=== PATIENT | female | born 1980 | race Caucasian/White ===

== ENCOUNTER → 2017-05-25 09:11 | Outpatient (CLI) | payer OTHER, SELFPAY ==
[2017-05-25 10:32] LABS: Hematocrit 34.1 % (37-47); Hemoglobin 11.7 g/dl (12.0-15.0); Mean Corp Hgb Conc 34.3 g/gl (32-36); Mean Corpuscular Hgb 29.8 pg (27.0-32.0); Mean Platelet Vol. 9.8 fl (6.2-12.0); Platelet Count 198 K/mm3 (150-450); RBC Distribution Width CV 12.9 % (11.6-14.6); RBC Distribution Width SD 39.8 fl (35.1-43.9); Red Blood Count 3.92 M/mm3 (4.2-5.4); White Blood Count 9.6 K/mm3 (4.4-11.0)
[2017-05-25 10:33] LABS: Scan Indicated on CBC? Y/N NO
[2017-05-25 10:35] LABS: Glucose Challenge Gest 1H 50g 84 mg/dL (70-140)
== END ==
PROVIDERS: Visit Provider Obstetrics & Gynecology
DX: Z34.83 Encounter for supervision of other normal pregnancy, third trimester (principal)
CPT/HCPCS: 36415; 82950; 85027; 86850

== ENCOUNTER → 2017-07-02 11:27 | Outpatient (CLI) | payer OTHER, SELFPAY ==
[2017-07-02 13:52] LABS: Hematocrit 32.8 % (37-47); Hemoglobin 11.4 g/dl (12.0-15.0); Mean Corp Hgb Conc 34.8 g/gl (32-36); Mean Corpuscular Hgb 29.6 pg (27.0-32.0); Mean Corpuscular Volume 85.2 fL (81-99); Mean Platelet Vol. 9.8 fl (6.2-12.0); Platelet Count 178 K/mm3 (150-450); RBC Distribution Width CV 12.9 % (11.6-14.6); RBC Distribution Width SD 39.3 fl (35.1-43.9); Red Blood Count 3.85 M/mm3 (4.2-5.4); White Blood Count 10.2 K/mm3 (4.4-11.0)
[2017-07-02 13:53] LABS: Scan Indicated on CBC? Y/N NO
[2017-07-02 14:04] LABS: AST(SGOT) 15 U/L (15-37); Alanine Aminotransfer ALT/SGPT 15 U/L (13-56); Albumin, Serum 2.9 g/dL (3.2-5.0); Alkaline Phosphatase 95 U/L (45-117); Bilirubin, Direct 0.06 mg/dL (0.00-0.30); Globulin 3.5 g/dL (2.2-4.2); Protein, Total 6.4 g/dL (6.4-8.2)
== END ==
PROVIDERS: Visit Provider Obstetrics & Gynecology
DX: R10.11 Right upper quadrant pain (principal)
CPT/HCPCS: 36415; 80076; 85027

== ENCOUNTER → 2017-07-21 13:49 | Outpatient (CLI) | payer OTHER, SELFPAY ==
[2017-07-21 17:57] LABS: Group B Strep DNA By PCR POSITIVE (Negative); Probe Check PASS
== END ==
PROVIDERS: Visit Provider Obstetrics & Gynecology
DX: Z36.85 Encounter for antenatal screening for Streptococcus B (principal)
CPT/HCPCS: 87653

== ENCOUNTER 2017-08-25 06:41 | Outpatient (CLI) | payer OTHER, SELFPAY ==
[2017-08-25 07:04] VITALS: BMI 29.4
--- NOTE | 2017-08-27 07:33 | OB.TRI.NOTE ---
History of Present Illness Date of Service: 08/25/17 Was patient seen by the physician?: Yes Reason For Visit: DECREASE MOVEMENT Date of Service: 08/25/17 Final RADHA: 08/17/17 Gestational age: 41 Weeks and 1 Days History of Present Illness: 37 yo female presents at 41 1/7 wk EGA by early sono with CC of dec FM. No interest in induction until absolutely necessary. Allergies No Known Allergies Allergy (Verified 08/25/17 07:09) NST - FHR Rate Baby A Baseline: 130-140 avg variability. Accels. Variability:: Moderate Accelerations:: 15 x 15 Decelerations:: None NST Reactive:: Yes, Appropriate for gestational age FHR Category:: Category I Uterine Activity:: irreg UCs. Impression/Plan 41 1/7 wk EGA . DECLINES INDUCTION NST reactive F/U in ofc as planned for PNV and NST Return to OB dept if inc s/sx of labor.
== END 2017-08-25 08:45 | disposition home or self-care (01) ==
LOC: WPOUT 06:57 → WP 06:58
PROVIDERS: Family Provider Family Medicine; PCP Family Medicine; Visit Provider Obstetrics & Gynecology
DX: O48.0 Post-term pregnancy (principal); Z3A.41 41 weeks gestation of pregnancy
CPT/HCPCS: 59025; 59050; 99218; G0378

== ENCOUNTER 2017-08-31 07:05 | Inpatient (IN) | payer OTHER, SELFPAY ==
[2017-08-31 07:26] VITALS: BMI 29.7
[2017-08-31] MEDS: Lactated Ringers 1,000 ML 50 ML IV (07:59)
[2017-08-31 08:24] LABS: Hematocrit 35.5 % (37-47); Hemoglobin 11.7 g/dl (12.0-15.0); Mean Corpuscular Hgb 27.5 pg (27.0-32.0); Mean Corpuscular Volume 83.5 fL (81-99); Mean Platelet Vol. 10.7 fl (6.2-12.0); Platelet Count 156 K/mm3 (150-450); RBC Distribution Width SD 42.3 fl (35.1-43.9); Red Blood Count 4.25 M/mm3 (4.2-5.4); White Blood Count 6.8 K/mm3 (4.4-11.0)
[2017-08-31 08:30] LABS: Scan Indicated on CBC? Y/N NO
[2017-08-31] MEDS: Oxytocin 30 units/NS 500 ml 30 UNITS/500 ML IV.SOLN IV (08:41)
--- NOTE | 2017-08-31 12:37 | PCM.PN.BLA ---
Progress Note 42 wk induction postdates Up walking and very active this am. Feeling very minimal cramping. Plans to go natural, no epidural AVSS Pitocin at 8 mIU/min EFM intermittent tracing, but all category I when traced. 120-130s mod variability. Accels. Irreg UC and poor pickle solution maker. approx q 4-5 min at times CX; 4/75/-1 midposition. Mod consistency. AROM clear fluid Scalp lead placed. A/P: 42 wk induction of labor postdates . continue induction. Watch progress, descent. Anticipate . LGA and h/o 10# last delivery.
[2017-08-31] MEDS: Oxytocin 30 units/NS 500 ml 30 UNITS/500 ML IV.SOLN 334 UNITS IV (13:45)
[2017-08-31] MEDS: Oxytocin 30 units/NS 500 ml 30 UNITS/500 ML IV.SOLN 167 UNITS IV (14:15)
[2017-08-31] MEDS: 0.9% Saline Lock 10 ML Syringe IV (14:45)
--- NOTE | 2017-08-31 19:49 | PCM.OB.VAG ---
Vaginal Delivery Maternal Presentation: Medically Indicated Induction 42 wk induction postdates Method of Induction: Pitocin, Amniotomy Medical Reason for Induction: Post term Amniotic Membrane Rupture Type: Artificial Amniotic Fluid Description: Clear Final RADHA: 08/17/17 Gestational age: 42 Weeks and 0 Days Date of Procedure: 08/31/17 Pre-Operative Diagnosis: 42 wk induction Post-Operative Diagnosis: Same Surgery/ Procedure Performed: Spontaneous Vaginal Delivery Type of Anesthesia: None Description of Procedure: of a gomez viable male over intact perineum to 2nd degree perineal laceration. Head delivered FATUMA. Loose body cord, nuchal cord noted. Shoulder delivered easily with gentle lateral traction and maternal expulsive effort, and rotation of anterior shoulder. OP and nares bulb suctioned at delivery. to maternal abdomen for drying , stimulation. Cord clamped times two and cut. Routine cord gases and cord blood for typing collected. Ecchymosis noted around face (rapid descent). Ap 8/9 Placenta delivered by spontaneous expulsion, and expression. 3 v cord noted. Placenta intact with trailing membranes. PP exam: perineal laceration noted. 2nd degree. Pt declined lidocaine local d/t possible adverse systemic reaction prior. Skin infiltrated with 15 cc of lactated ringers. 3-0 Vicryl interrupted suture used to reapproximate muscles and then skin later. Minimal suturing done d/t lack of local anesthesia. Pt tolerated procedure well. No other lacerations noted. EBL 300 cc Pt and infant tolerated delivery well. To recovery, stable condition. Ray allen sponge counts correct x two. Presentation: Vertex, FATUMA Placental Delivery Description: Spontaneous Placenta Disposition: [facility] Cord Vessel Description: 3 Vessels Nuchal Cord Compression: Without compression Cord Gases drawn per routine: ABG, VBG Cord Entanglement: Around neck x 1, loose Estimated Blood Loss: 300 Infant A gender: Male (1 minute): 8 (5 minute): 9 Episiotomy Description: None Laceration: Midline, Perineal Extension/lac, 2nd degree Medications given after delivery: IV Pitocin Complications: None
--- NOTE | 2017-08-31 19:57 | OP.PCM_ITS ---
Vaginal Delivery Maternal Presentation: Medically Indicated Induction 42 wk induction postdates Method of Induction: Pitocin, Amniotomy Medical Reason for Induction: Post term Amniotic Membrane Rupture Type: Artificial Amniotic Fluid Description: Clear Final RADHA: 08/17/17 Gestational age: 42 Weeks and 0 Days Date of Procedure: 08/31/17 Pre-Operative Diagnosis: 42 wk induction Post-Operative Diagnosis: Same Surgery/ Procedure Performed: Spontaneous Vaginal Delivery Type of Anesthesia: None Description of Procedure: of a gomez viable male over intact perineum to 2nd degree perineal laceration. Head delivered FATUMA. Loose body cord, nuchal cord noted. Shoulder delivered easily with gentle lateral traction and maternal expulsive effort, and rotation of anterior shoulder. OP and nares bulb suctioned at delivery. to maternal abdomen for drying , stimulation. Cord clamped times two and cut. Routine cord gases and cord blood for typing collected. Ecchymosis noted around face (rapid descent). Ap 8/9 Placenta delivered by spontaneous expulsion, and expression. 3 v cord noted. Placenta intact with trailing membranes. PP exam: perineal laceration noted. 2nd degree. Pt declined lidocaine local d/ t possible adverse systemic reaction prior. Skin infiltrated with 15 cc of lactated ringers. 3-0 Vicryl interrupted suture used to reapproximate muscles and then skin later. Minimal suturing done d/t lack of local anesthesia. Pt tolerated procedure well. No other lacerations noted. EBL 300 cc Pt and infant tolerated delivery well. To recovery, stable condition. Ray allen sponge counts correct x two. Presentation: Vertex, FATUMA Placental Delivery Description: Spontaneous Placenta Disposition: [facility] Cord Vessel Description: 3 Vessels Nuchal Cord Compression: Without compression Cord Gases drawn per routine: ABG, VBG Cord Entanglement: Around neck x 1, loose Estimated Blood Loss: 300 A gender: Male (1 minute): 8 (5 minute): 9 Episiotomy Description: None Laceration: Midline, Perineal Extension/lac, 2nd degree Medications given after delivery: IV Pitocin Complications: None
--- NOTE | 2017-08-31 19:57 | PCM.DCVAG ---
Discharge Diet: No Restrictions Discharge Activity: May Shower, May Take a Tub Bath May resume sexual activity in: 4-6 weeks Additional Activity Instructions:: Nothing in the vagina for 4-6 weeks. You may return to work/school in 6 weeks. Additional Instructions: If you experience any of the following, contact your healthcare provider. Bleeding that soaks a pad every hour for 2 hours Fever 100.4 or higher Unrelieved abdominal pain Problems urinating (including inability to urinate or burning while urinating). Visual changes Severe headache Flu-like symptoms Pain or redness in one of both of your breasts Pain, warmth, tenderness or swelling in your legs, especially the calf area Frequent nausea and vomiting Symptoms of depression or anxiety If you experience any of the following, call 911 or go to the nearest Emergency Room. Chest pain Problems breathing Seizure activity Partial or complete paralysis of a body part, slurred speech, weakness or drooping of the face, or a sudden inability to walk or hold your balance Allergies/Adverse Reactions: Allergies No Known Allergies Allergy (Verified 08/31/17 07:26) Medications to take at Discharge Vits [Prenatabs FA] 1 tablet PO DAILY 08/14/14 Please Follow Up With: Mirian Deshpande MD - [phone] When: Call to make an appointment with your doctor in 6 weeks. Primary Care Physician: Bruce Bolton MD [Primary Care Provider] - Test Results: Test results from this visit will be discussed in further detail at your follow-up appointment, if applicable. Proposed Discharge Date: 09/02/17
--- NOTE | 2017-08-31 19:59 | DCINST_ITS ---
Discharge Diet: No Restrictions Discharge Activity: May Shower, May Take a Tub Bath May resume sexual activity in: 4-6 weeks Additional Activity Instructions:: Nothing in the vagina for 4-6 weeks. You may return to work/school in 6 weeks. Additional Instructions: If you experience any of the following, contact your healthcare provider. * Bleeding that soaks a pad every hour for 2 hours * Fever 100.4 or higher * Unrelieved abdominal pain * Problems urinating (including inability to urinate or burning while urinating) . * Visual changes * Severe headache * Flu-like symptoms * Pain or redness in one of both of your breasts * Pain, warmth, tenderness or swelling in your legs, especially the calf area * Frequent nausea and vomiting * Symptoms of depression or anxiety If you experience any of the following, call 911 or go to the nearest Emergency Room. * Chest pain * Problems breathing * Seizure activity * Partial or complete paralysis of a body part, slurred speech, weakness or drooping of the face, or a sudden inability to walk or hold your balance Allergies/Adverse Reactions: Allergies No Known Allergies Allergy (Verified 08/31/17 07:26) Medications to take at Discharge Vits [Prenatabs FA] 1 tablet PO DAILY 08/14/14 Please Follow Up With: Mirian Deshpande MD - [phone] When: Call to make an appointment with your doctor in 6 weeks. Primary Care Physician: Bruce Bolton MD [Primary Care Provider] - Test Results: Test results from this visit will be discussed in further detail at your follow- up appointment, if applicable. Proposed Discharge Date: 09/02/17
[2017-08-31 20:06] VITALS: BP 110/72; PULSE 85; RESP 16; TEMP 36.3; O2SAT 98
[2017-08-31 23:50] VITALS: BP 110/65; PULSE 96; RESP 18; TEMP 36.7; O2SAT 99
[2017-09-01 04:40] VITALS: BP 107/70; PULSE 64; RESP 18; TEMP 36.6; O2SAT 96
[2017-09-01] MEDS: Ibuprofen 600 MG Tablet PO ×3 (08:12→21:23)
--- NOTE | 2017-09-01 08:15 | PCM.PN.OB ---
Subjective: PPD#1 10# 2 oz boy. Doing well. Option to go home or stay until tomorrow discussed. pt states tired and is having a lot of hip and pelvic pain. No inc pain at perineum didn't sleep much d/t discomfort. States will ask for Ibuprofen. Nursing baby OK. Objective: Standing and holding baby at bedside. - Physical Exam General: Alert, Oriented x3, Cooperative, No apparent distress HEENT: Atraumatic Neck: Supple Extremities: No clubbing, No cyanosis, No edema Neurological: Cranial nerves II-XII grossly intact Psych/Mental Status: Normal Affect Vital Signs Temp Pulse Resp BP Pulse Ox 97.9 F 64 18 107/70 96 09/01/17 04:40 09/01/17 04:40 09/01/17 04:40 09/01/17 04:40 09/01/17 04:40 Oxygen Delivery Method Room Air Weight: 86.2 kg Body Mass Index (BMI) 29.7 Intake and Output for Last 24 Hours 08/30/17 08/31/17 09/01/17 23:59 23:59 23:59 Output Total 600 / 600 Balance -600 / -600 Laboratory Tests Past 24 Hrs 08/31/17 08/31/17 08/31/17 08:00 08:00 17:22 WBC 6.8 RBC 4.25 Hgb 11.7 L Hct 35.5 L MCV 83.5 MCH 27.5 MCHC 33.0 RDW 14.0 RDW Differential 42.3 Plt Count 156 MPV 10.7 Blood Type O NEGATIVE Antibody Screen NEGATIVE Screen NEGATIVE Baby's Blood Type O POSITIVE Baby's ERVIN NEGATIVE Medical Necessity - Tobacco Use Smoking Status: Never smoker Assessment/Plan PPD#1 Stable . NSAIDs prn for pain. May elect to go home later today or stay. Will inform nurses of her decision and if elects dischg, will call for dischg order. Continue care.
[2017-09-01 08:22] VITALS: BP 109/60; PULSE 80; RESP 18; TEMP 36.6
[2017-09-01 13:01] VITALS: BP 112/65; PULSE 96; RESP 18; TEMP 36.8
[2017-09-01 17:01] VITALS: BP 121/80; PULSE 88; RESP 16; TEMP 36.6
[2017-09-01 20:10] VITALS: BP 99/58; PULSE 88; RESP 17; TEMP 37
[2017-09-02 01:20] VITALS: BP 103/57; PULSE 88; RESP 18; TEMP 35.8
[2017-09-02] MEDS: Ibuprofen 600 MG Tablet PO ×2 (03:14→10:46)
--- NOTE | 2017-09-02 07:45 | PCM.PROGNOTE ---
Subjective: PPD#2 Doing well. Nursing. Much less pain today, less aching of pelvic bones. Nursing well. No concerns voiced. - Physical Exam General: Alert, Oriented x3, Cooperative, No apparent distress HEENT: Atraumatic Neck: Supple Abdomen: Soft - fundus firm NT at umbilicus Neurological: Cranial nerves II-XII grossly intact Psych/Mental Status: Normal Affect Vital Signs Temp Pulse Resp BP Pulse Ox 96.4 F L 88 18 103/57 L 96 09/02/17 01:20 09/02/17 01:20 09/02/17 01:20 09/02/17 01:20 09/01/17 04:40 Oxygen Delivery Method Room Air Weight: 86.2 kg Body Mass Index (BMI) 29.7 Intake and Output for Last 24 Hours 08/31/17 09/01/17 09/02/17 23:59 23:59 23:59 Intake Total 1800 / 1800 Output Total 600 / 600 Balance -600 / -600 1800 / 1800 Medical Necessity - Tobacco Use Smoking Status: Never smoker Assessment/Plan PPD#2 Stable . D/C home. RTO in 6 wk for pp check.
[2017-09-02 08:55] VITALS: BP 100/69; PULSE 80; RESP 20; TEMP 36.6
[2017-09-02] MEDS: Prenatal Vits Tablet 1 TABLET PO (10:46)
== END 2017-09-02 11:50 | disposition home or self-care (01) | DRG 775 ==
PROVIDERS: Admitting Provider Obstetrics & Gynecology; Family Provider Family Medicine; PCP Family Medicine; Visit Provider Obstetrics & Gynecology
DX: O48.0 Post-term pregnancy (principal); O99.824 Streptococcus B carrier state complicating childbirth; O70.1 Second degree perineal laceration during delivery; O69.81X0 Labor and delivery complicated by cord around neck, without compression, not applicable or unspecified; O36.63X0 Maternal care for excessive fetal growth, third trimester, not applicable or unspecified; Z37.0 Single live birth; Z3A.42 42 weeks gestation of pregnancy
CPT/HCPCS: 59025; 59050; 85027; 85461; 86850; 86900; 90384; 99218; J7120; A4216; G0378; J0290; J2790

== ENCOUNTER → 2019-02-17 | Outpatient (CLI) | payer OTHER, SELFPAY ==
[2018-12-13 17:42] VITALS: BMI 29.7
[2019-02-21 03:06] LABS: Age Gdln ACOG Testing 30-65 (.)
[2019-02-21 12:50] LABS: HPV APTIMA, High Risk Negative (Negative)
[2019-02-21 12:56] LABS: HPV Reflexed? YES, CHARGE PATIENT
== END | disposition home or self-care (01) ==
LOC: LABSPEC 11:21
PROVIDERS: Family Provider Family Medicine; PCP Family Medicine; Referring Provider Obstetrics & Gynecology; Visit Provider Obstetrics & Gynecology
DX: Z12.4 Encounter for screening for malignant neoplasm of cervix (principal)
CPT/HCPCS: 87624; 88175; G0145

== ENCOUNTER → 2019-07-28 07:13 | Outpatient (CLI) | payer OTHER, SELFPAY ==
[2018-12-13 17:42] VITALS: BMI 29.7
[2019-07-28 10:25] LABS: Vitamin D,25 Hydroxy 38.9 ng/mL
[2019-07-28 10:28] LABS: Anion Gap 6 (5-15); BUN 11 mg/dL (7-18); BUN/Creat Ratio 12.3 RATIO (10-20); Chloride 103 mmol/L (98-107); Cholesterol 182 mg/dL (200); EST Glomerular Filtration Rate 75 mL/min (>60); Est Glom Filt Rate - Afr Amer 91 mL/min (>60); Glucose 95 mg/dL (74-106); High Density Lipoprotein 64 mg/dL; Potassium 3.7 mmol/L (3.5-5.1); Sodium Level 138 mmol/L (136-145); Triglycerides 81 mg/dL; Very Low Density Lipoprotein 16 mg/dL (5-40)
== END ==
PROVIDERS: PCP Family Medicine; Referring Provider Family Medicine; Visit Provider Family Medicine
DX: Z00.00 Encounter for general adult medical examination without abnormal findings (principal); E55.9 Vitamin D deficiency, unspecified
CPT/HCPCS: 36415; 80048; 80061; 82306

== ENCOUNTER → 2022-04-22 | Outpatient (CLI) | payer OTHER, SELFPAY ==
--- NOTE | 2022-04-22 11:00 | RAD_ITS ---
STUDY: X-RAY LEFT FOOT, FIRST TOE REASON FOR EXAM: Female, 41 years old. Toe pain. TECHNIQUE: 4 view(s) of the toe were obtained. COMPARISON: None. FINDINGS: Normal visualized metatarsus. Normal metatarsophalangeal (M.T.P) joint. Normal interphalangeal joints. Normal phalanges and interphalangeal joints. The soft tissue structures are unremarkable. RAD/Toe(s) Min 2 Views IMPRESSION: No acute abnormality. Electronically Signed: Calin Jones, at 12:01 EST ,
== END | disposition home or self-care (01) ==
PROVIDERS: PCP Family Medicine; Referring Provider Nurse Practitioner Family; Visit Provider Nurse Practitioner Family
DX: M79.676 Pain in unspecified toe(s) (principal)
CPT/HCPCS: 73660

== ENCOUNTER 2022-06-17 07:27 | Outpatient (CLI) | payer OTHER, SELFPAY ==
[2022-06-17 10:26] LABS: Cholesterol 182 mg/dL (200); Glucose 96 mg/dL (74-106); High Density Lipoprotein 74 mg/dL; Triglycerides 63 mg/dL; Very Low Density Lipoprotein 13 mg/dL (5-40)
== END 2022-06-17 23:59 | disposition home or self-care (01) ==
LOC: MTLAB 07:28
PROVIDERS: PCP Family Medicine; Referring Provider Family Medicine; Visit Provider Family Medicine
DX: Z00.00 Encounter for general adult medical examination without abnormal findings (principal)
CPT/HCPCS: 36415; 80061; 82947

== ENCOUNTER → 2024-01-18 | Outpatient (CLI) | payer OTHER, SELFPAY ==
[2024-01-18 12:15] LABS: Hematocrit 39.5 % (37-47); Hemoglobin 13.2 g/dL (12.0-15.0); Mean Corp Hgb Conc 33.4 g/dL (32-36); Mean Corpuscular Hgb 29.1 pg (27.0-32.0); Mean Platelet Vol. 10.2 fl (6.2-12.0); Platelet Count 216 K/mm3 (150-450); RBC Distribution Width CV 12.1 % (11.6-14.6); RBC Distribution Width SD 38.8 fl (35.1-43.9); Red Blood Count 4.54 M/mm3 (4.2-5.4); White Blood Count 4.6 K/mm3 (4.4-11.0)
[2024-01-18 12:39] LABS: Internal QC Validated? YES +Cl - CLEAR BKGD; Pregnancy, Serum, hCG Quali. NEGATIVE Negative; Record Kit Lot#, Serum Preg. 869294
[2024-01-18 13:15] LABS: Follicle Stimulating Hormone 15.5 mIU/mL; Luteinizing Hormone 4.2 mIU/mL
== END | disposition home or self-care (01) ==
LOC: MFPLAB 10:18
PROVIDERS: PCP Family Medicine
DX: N92.6 Irregular menstruation, unspecified (principal)
CPT/HCPCS: 36415; 83001; 83002; 84443; 84703; 85027

== ENCOUNTER → 2024-04-11 | Outpatient (CLI) | payer OTHER, SELFPAY ==
--- NOTE | 2024-04-11 13:26 | BI_ITS ---
PROCEDURE: SCRN MAMM (CAD)W/LONG BILAT REASON FOR EXAM: F, Age 43 y/o, baseline mammogram. TECHNIQUE: Bilateral screening digital breast tomosynthesis with 2D and 3D images. Computer aided detection. COMPARISON: None. This is a baseline mammogram. FINDINGS: The breasts are extremely dense which lowers the sensitivity of mammography. No suspicious masses, areas of developing architectural distortion, or suspicious calcifications. BI/SCRN MAMM (CAD)W/LONG BILAT IMPRESSION: BI-RADS 1: NEGATIVE. RECOMMEND ANNUAL MAMMOGRAPHIC SCREENING. Follow-up code: Routine Follow-up The patient will be notified of the results by letter. Reading Location: [id number]
== END | disposition home or self-care (01) ==
LOC: OPBI 13:24
PROVIDERS: PCP Family Medicine; Referring Provider Family Medicine; Visit Provider Family Medicine
DX: Z12.31 Encounter for screening mammogram for malignant neoplasm of breast (principal)
CPT/HCPCS: 77063; 77067

== ENCOUNTER → 2024-06-15 | Outpatient (CLI) | payer OTHER, SELFPAY ==
--- NOTE | 2024-06-15 09:45 | RAD_ITS ---
PROCEDURE: CHEST PA AND LATERAL 06/15/2024 REASON FOR EXAM: WHEEZING TECHNIQUE: Frontal and lateral views of the chest. FINDINGS: Hardware: None Heart: The heart size is normal. Mediastinum: The mediastinal contour is unremarkable. Lungs: The lungs are clear. Bones: The bones are unremarkable. RAD/Chest PA and Lateral IMPRESSION: NO ACUTE FINDINGS. Reading Location: [id number]
[2024-06-15 13:35] LABS: Cholesterol 189 mg/dL (<=200); High Density Lipoprotein 74 mg/dL; Low Density Lipoprotein Calc. 101 mg/dL; Triglycerides 67 mg/dL; Very Low Density Lipoprotein 13 mg/dL (5-40); cholesterol:hdl ratio screen 2.55
[2024-06-20 17:08] LABS: HPV APTIMA, High Risk Negative (Negative)
== END | disposition home or self-care (01) ==
PROVIDERS: PCP Family Medicine
DX: Z12.4 Encounter for screening for malignant neoplasm of cervix (principal); R06.2 Wheezing; E78.1 Pure hyperglyceridemia
CPT/HCPCS: 36415; 71046; 80061; 88175; G0145

== ENCOUNTER → 2024-09-08 | Outpatient (CLI) | payer OTHER, SELFPAY ==
[2024-09-13 21:07] LABS: Bluegrass, Kentucky <0.10 kU/L (Class 0); Cat Hair/Dander, Standard <0.10 kU/L (Class 0); Cedar, Mountain <0.10 kU/L (Class 0); Cockroach, American <0.10 kU/L (Class 0); Dog Epithelia <0.10 kU/L (Class 0); Elm, American White <0.10 kU/L (Class 0); Hazelnut Tree <0.10 kU/L (Class 0); Hickory, White <0.10 kU/L (Class 0); Mulberry, White <0.10 kU/L (Class 0); Oak, White <0.10 kU/L (Class 0); Pigweed, Rough <0.10 kU/L (Class 0); Plantain, English <0.10 kU/L (Class 0); Ragweed, Short/Common <0.10 kU/L (Class 0); Sheep Sorrel(Dock) <0.10 kU/L (Class 0); Sycamore, American <0.10 kU/L (Class 0)
== END | disposition home or self-care (01) ==
LOC: MTLAB 12:53
PROVIDERS: PCP Family Medicine; Referring Provider Family Medicine; Visit Provider Family Medicine
DX: R06.2 Wheezing (principal)
CPT/HCPCS: 36415; 86003